=== PATIENT | male | born 1950 | race Caucasian/White ===

== ENCOUNTER → 2017-02-14 | Outpatient (CLI) | payer BC | LOC: CIMAGING 10:17 | PROVIDERS: ATTEND Family Medicine | DX: J98.4 Other disorders of lung (principal) | CPT/HCPCS: 71250-PO ==

== ENCOUNTER 2017-08-31 22:31 | Emergency (ER) | payer OTHER, MEDICARE ==
--- NOTE | 2017-08-31 23:09 | EDPHY ---
H & P Smoking Status: Never smoked Time Seen by Provider: 08/31/17 22:55 HPI/ROS: CHIEF COMPLAINT: Abdominal pain HISTORY OF PRESENT ILLNESS: 67-year-old male presents to the emergency department by private vehicle with a sudden onset of mid abdominal pain. The patient states around 8:00 p.m. he had just finished dinner and developed severe sudden onset of abdominal pain. The pain has continued. He denies feeling any pain in his chest or difficulty breathing. Denies back pain. Denies flank pain. No urinary symptoms. He has never had pain like this in the past. No headache. No nausea or vomiting. No diarrhea. REVIEW OF SYSTEMS: Constitutional: No fever, no chills. Eyes: No double or blurry vision. ENT: No sore throat. Respiratory: No cough, no shortness of breath. Cardiac: No chest pain. Gastrointestinal: Abdominal pain as above. No vomiting or diarrhea Genitourinary: No dysuria. Musculoskeletal: No neck or back pain. Skin: No rashes. Neurological: No headache. (Ruth Arroyo) Past Medical/Surgical History: Negative (Ruth Arroyo) Social History: (Ruth Arroyo) Physical Exam: General Appearance: Alert, no distress. Vital signs are stable. Patient appears comfortable. Eyes: Pupils equal and round. Extraocular motions are all intact. ENT: Mouth: Mucous membranes moist. Respiratory: No wheezing, rhonchi, or rales, lungs are clear to auscultation. Cardiovascular: Regular rate and rhythm. Gastrointestinal: Abdomen is soft. Tenderness with palpation in the periumbilical area as well as slightly in the left and the right lower quadrant. There is no rebound, guarding or masses noted. No CVA tenderness bilaterally. Neurological: Alert and oriented x 3, cranial nerves II through XII grossly intact Skin: Warm and dry, no rashes. Musculoskeletal: Nontender to palpate along the cervical, thoracic or lumbar spine. Neck is supple. Extremities: Full range of motion and no peripheral edema. Psychiatric: Patient is oriented X 3, there is no agitation. (Ruth Arroyo) Constitutional: Initial Vital Signs Temperature (C) 36.4 C 08/31/17 22:33 Heart Rate 72 08/31/17 22:33 Respiratory Rate 18 08/31/17 22:33 Blood Pressure 122/65 H 10/27/17 22:33 O2 Sat (%) 98 08/31/17 22:33 O2 Delivery Mode Room Air Allergies/Adverse Reactions: No Known Allergies Allergy (Unverified 08/31/17 22:35) Home Medications: Medication Instructions Recorded NK [No Known Home Meds] 08/31/17 Medical Decision Making - Diagnostics Imaging: Discussed imaging studies w/ call worker Radiologist - Diagnostics Imaging Results: Imaging Impressions Abdomen CT 09/01/17 00:02 Impression:1. Possible early jejunal obstruction and scattered other possibly abnormal loops of small bowel involving jejunum and ileum. The stomach is distended with food. Might this patient benefit from an NG tube or at some point a CT enteroclysis or small bowel follow-through? 2. Normal appendix. 3. Constipation. Results discussed with Ruth Nieves at 1:23 AM. General information for patients regarding this examination can be found at [email or web address]. If you have questions or comments about this report, please contact me at [phone] (hospital) or [phone] (cell). ED Course/Re-evaluation: 67-year-old male presents with abdominal pain. The patient required IV Dilaudid for pain control. I recommended CT imaging of the abdomen and pelvis to evaluate for possible intra-abdominal cause of his abdominal pain. Patient verbalized understanding and agreed. Laboratory studies reveal white blood cell count is elevated at 15.21. Chemistries are unremarkable. CT scan of the abdomen and pelvis reveal dilated loops of small bowel. He has a normal appearing appendix. He is constipated. Possible evidence of some early small-bowel obstruction. I spoke with the on-call general surgeon, Dr. Zac Gomez, who came to the emergency department to evaluate the patient at 2:00 a.m.. Patient was evaluated by the general surgeon. He recommended trialing the patient on p.o. challenge. He does not feel that he is a surgical candidate. If he passes p.o. challenge, he can be discharged home. (Ruth Arroyo) Differential Diagnosis: Including but not limited to bowel obstruction, abdominal aortic aneurysm, acute appendicitis, kidney stone, small bowel obstruction (Ruth Arroyo) Other Provider: PHYSICIAN DOCUMENTATION: The patient was evaluated and managed by the Physician Flatbed Truck Driver. My co- signature indicates that I have reviewed this chart and I agree with the findings and plan of care as documented. I am the secondary supervising physician. I examined this patient independently after he had been here for several hours. His abdominal pain had improved. His abdominal exam was benign to me. He was subsequently evaluated by the on-call general surgeon who felt that he did not have any serious pathology. The patient felt well enough to go home and was discharged. (Christine Hewitt) - Data Points Laboratory Results: Laboratory Results 08/31/17 23:11 08/31/17 23:11 08/31/17 08/31/17 08/31/17 23:11 23:11 23:07 WBC 15.21 10^3/uL H 10^3/uL (3.80-9.50) RBC 4.56 10^6/uL 10^6/uL (4.40-6.38) Hgb 14.7 g/dL g/dL (13.7-17.5) POC Hgb 15.3 gm/dL gm/dL (13.7-17.5) Hct 41.1 % % (40.0-51.0) POC Hct 45 % % (40-51) MCV 90.1 fL fL (81.5-99.8) MCH 32.2 pg pg (27.9-34.1) MCHC 35.8 g/dL g/dL (32.4-36.7) RDW 12.5 % % (11.5-15.2) Plt Count 205 10^3/uL 10^3/uL (150-400) MPV 10.3 fL fL (8.7-11.7) Neut % (Auto) 87.5 % H % (39.3-74.2) Lymph % (Auto) 7.7 % L % (15.0-45.0) Wright % (Auto) 3.7 % L % (4.5-13.0) Eos % (Auto) 0.5 % L % (0.6-7.6) Baso % (Auto) 0.2 % L % (0.3-1.7) Nucleat RBC Rel Count 0.0 % % (0.0-0.2) Absolute Neuts (auto) 13.32 10^3/uL H 10^3/uL (1.70-6.50) Absolute Lymphs (auto) 1.17 10^3/uL 10^3/uL (1.00-3.00) Absolute Monos (auto) 0.56 10^3/uL 10^3/uL (0.30-0.80) Absolute Eos (auto) 0.07 10^3/uL 10^3/uL (0.03-0.40) Absolute Basos (auto) 0.03 10^3/uL 10^3/uL (0.02-0.10) Absolute Nucleated RBC 0.00 10^3/uL 10^3/uL (0-0.01) Immature Gran % 0.4 % % (0.0-1.1) Immature Gran # 0.06 10^3/uL 10^3/uL (0.00-0.10) POC Sodium 142 mEq/L mEq/L (134-144) Sodium 141 mEq/L mEq/L (134-144) POC Potassium 3.5 mEq/L mEq/L (3.3-5.0) Potassium 3.6 mEq/L mEq/L (3.5-5.2) POC Chloride 102 mEq/L mEq/L (97-110) Chloride 101 mEq/L mEq/L (97-110) Carbon Dioxide 29 mEq/l mEq/l (22-31) Anion Gap 11 mEq/L mEq/L (8-16) POC BUN 11 mg/dL mg/dL (7-23) BUN 12 mg/dL mg/dL (7-23) Creatinine 0.8 mg/dL mg/dL (0.7-1.3) POC Creatinine 0.9 mg/dL mg/dL (0.7-1.3) Estimated GFR > 60 Glucose 117 mg/dL H mg/dL (70-100) POC Glucose 120 mg/dL H mg/dL (70-100) Calcium 9.1 mg/dL mg/dL (8.5-10.4) Total Bilirubin 0.4 mg/dL mg/dL (0.1-1.4) Conjugated Bilirubin 0.0 mg/dL mg/dL (0.0-0.5) Unconjugated Bilirubin 0.4 mg/dL mg/dL (0.0-1.1) AST 28 IU/L IU/L (17-59) ALT 39 IU/L IU/L (21-72) Alkaline Phosphatase 58 IU/L IU/L (38-126) Total Protein 6.7 g/dL g/dL (6.3-8.2) Albumin 3.8 g/dL g/dL (3.5-5.0) Lipase 94 IU/L IU/L (23-300) Medications Given: Discontinued Medications Hydromorphone HCl (Dilaudid) 0.5 mg IVP EDNOW ONE Stop: 09/01/17 00:10 Last Admin: 09/01/17 00:10 Dose: 0.5 mg Hydromorphone HCl (Dilaudid) 0.5 mg IVP EDNOW ONE Stop: 09/01/17 00:10 Last Admin: 09/01/17 00:14 Dose: Not Given Point of Care Test Results: 08/31/17 23:07 POC Sodium 142 POC Potassium 3.5 POC Chloride 102 POC BUN 11 POC Creatinine 0.9 POC Glucose 120 H Departure - Departure Disposition: Home, Routine, Self-Care Clinical Impression: Abdominal pain Qualifiers: Abdominal location: generalized Qualified Code(s): R10.84 - Generalized abdominal pain Condition: Good Instructions: Abdominal Pain (ED) Additional Instructions: Abdominal Pain: Return to the Emergency Department immediately for increasing pain, fever, vomiting, or if not completely better in 8-12 hours. Magnesium citrate as needed for symptoms of constipation. Referrals: Harshad Carroll, [Primary Care Provider] - As per Instructions
[2017-08-31 23:17] LABS: % IMMATURE GRANULYOCYTES 0.4 % (0.0-1.1); ABSOLUTE IMMATURE GRANULOCYTES 0.06 10^3/uL (0.00-0.10); ADD DIFF? NO; ADD MORPH? NO; ADD SCAN? NO; ATYPICAL LYMPHOCYTE FLAG 0 (0-99); FRAGMENT RBC FLAG 0 (0-99); HEMATOCRIT 41.1 % (40.0-51.0); HEMOGLOBIN 14.7 g/dL (13.7-17.5); LEFT SHIFT FLG 0 (0-99); LIPEMIA HEMOLYSIS FLAG 90 (0-99); MEAN CELL HEMOGLOBIN 32.2 pg (27.9-34.1); MEAN CELL HEMOGLOBIN CONCENTR. 35.8 g/dL (32.4-36.7); MEAN CELL VOLUME 90.1 fL (81.5-99.8); MEAN PLATELET VOLUME 10.3 fL (8.7-11.7); PLATELET CLUMPS FLAG 0 (0-99); PLATELET COUNT 205 10^3/uL (150-400); RED BLOOD CELL COUNT 4.56 10^6/uL (4.40-6.38); RED CELL DISTRIBUTION WIDTH 12.5 % (11.5-15.2)
--- NOTE | 2017-08-31 23:22 | CPEKG ---
Heart Rate: 80 RR Interval: 750 P-R Interval: 184 QRSD Interval: 90 QT Interval: 384 QTC Interval: 443 P [place]: 61 QRS [place]: 58 T Wave [place]: 37 EKG Severity - OTHERWISE NORMAL ECG - EKG Impression: SINUS RHYTHM EKG Impression: LOW VOLTAGE IN FRONTAL LEADS Electronically Signed By: Christine Hewitt 01-Sep-2017 07:35:54
[2017-08-31 23:29] LABS: ALANINE AMINOTRANSFERASE 39 IU/L (21-72); ALBUMIN 3.8 g/dL (3.5-5.0); ALKALINE PHOSPHATASE 58 IU/L (38-126); ANION GAP 11 mEq/L (8-16); ASPARTATE AMINOTRANSFERASE 28 IU/L (17-59); BILIRUBIN,TOTAL 0.4 mg/dL (0.1-1.4); BILIRUBIN-UNCONJUGATED 0.4 mg/dL (0.0-1.1); CALCIUM 9.1 mg/dL (8.5-10.4); CARBON DIOXIDE 29 mEq/l (22-31); CHLORIDE 101 mEq/L (97-110); CREATININE 0.8 mg/dL (0.7-1.3); GLOMERULAR FILTRATION RATE > 60; GLUCOSE 117 mg/dL (70-100); POTASSIUM 3.6 mEq/L (3.5-5.2); SODIUM 141 mEq/L (134-144); TOTAL PROTEIN 6.7 g/dL (6.3-8.2)
[2017-09-01] MEDS ORDERED: IOPAMIDOL (ISOVUE-300) 100 ML BTL ONE (00:06)
[2017-09-01] MEDS ORDERED: HYDROmorphONE/DILAUDID 1 MG/ML INJ ONE (00:08)
[2017-09-01] MEDS ORDERED: HYDROmorphONE/DILAUDID 1 MG/ML INJ IVP ONE ×2 (00:09)
[2017-09-01 01:18] VITALS: TEMP 98.6
[2017-09-01 03:08] VITALS: BP 110/55; PULSE 78; RESP 16; O2SAT 94
--- NOTE | 2017-09-01 05:06 | GCON ---
[f rep st] CONSULTATION REASON FOR CONSULTATION: Asked to see the patient in the emergency department because of abdominal p ain. HISTORY OF PRESENT ILLNESS: This 67-year-old male was entirely well until 8 o'clock tonight when he began having abdominal pain. No nausea. No vomiting. No diarrhea. He came to the emergency depart ment, received some Dilaudid. It is 2 hours since his last dose, and he states he feels much better. White blood count was 15,000. The remainder of his labs are unremarkable. A CT scan was done, [facility] shows some mildly dilated loops of bowel that are somewhat narrow in caliber. No free fluid. Inc identally noted is a retroaortic left renal vein. The colon has abundant stool. ALLERGIES: None. CURRENT MEDICATIONS: None. REVIEW OF SYSTEMS: Denies asthma, heart trouble, diabetes, epilepsy, rheumatic fever. PAST SURGICAL HISTORY: None. SOCIAL HISTORY: Nonsmoker. Occasional alcohol use. A retired graphics software engineer. . PHYSICAL EXAMINATION: GENERAL: Pleasant, alert male, in no distress. LUNGS: Clear. HEART: Pooja l S1, S2 without murmur. ABDOMEN: Soft, benign. Nondistended, nontender. No masses. No hernias. ASSESSMENT: CT scan with nonspecific small bowel changes, possibly gastroenteritis. He is currently pain-free, does not seem to be narcotized. RECOMMENDATIONS AND PLAN: Trial of clear liquids. Discharge home if continues to be pain-free. /[id number]/MODL
== END 2017-09-01 03:06 | disposition home or self-care (01) ==
DX: R10.84 Generalized abdominal pain (principal)
CPT/HCPCS: 74177; 93005; 96374; 99285; J1170; Q9967; 82947-QW